=== PATIENT | female | born 1970 ===

== ENCOUNTER 2016-11-04 17:28 | Observation (INO) | payer OTHER ==
[2016-11-04 18:18] LABS: BASO % 0.3 % (0.0-2.0); EOS % 0.2 % (0.0-4.0); HEMATOCRIT 35.2 % (34.0-47.0); LYMPH # 1.4 K/uL (1.0-4.3); LYMPH % 11.8 % (20.0-40.0); MEAN CELL VOLUME 65.9 fL (81.0-99.0); MEAN CORPUSCULAR HGB CONC 31.9 g/dL (33.0-37.0); MEAN PLATELET VOLUME 8.7 fL (7.2-11.7); MONO # 0.7 K/uL (0.0-0.8); MONO % 6.4 % (0.0-10.0); RED CELL DISTRIBUTION WIDTH 15.2 % (11.5-14.5); WHITE BLOOD COUNT 11.7 K/uL (4.8-10.8)
[2016-11-04 18:35] LABS: RBC URINE < 1 /hpf (0-3); URINE BILIRUBIN NEGATIVE (NEGATIVE); URINE BLOOD NEGATIVE (NEGATIVE); URINE COLOR Straw (YELLOW); URINE GLUCOSE (UA) 3+ mg/dL (Normal); URINE KETONE TRACE mg/dL (NEGATIVE); URINE LEUKOCYTE ESTERASE NEG Leu/uL (Negative); URINE PROTEIN NEGATIVE (NEGATIVE); URINE UROBILINOGEN NORMAL mg/dL (0.2-1.0); WBC URINE 1 /hpf (0-5)
[2016-11-04 18:45] LABS: PARTIAL THROMBOPLASTIN TIME 27 SECONDS (21-34)
[2016-11-04 19:07] LABS: CHLORIDE 99 mmol/L (98-107)
[2016-11-04 19:08] LABS: POTASSIUM 3.7 mmol/L (3.6-5.2); SODIUM 140 mmol/L (132-148)
[2016-11-04 19:10] LABS: ALB/GLOB RATIO 1.2 (1.0-2.1); ALKALINE PHOSPHATASE 73 U/L (38-126); AST/SGOT 35 U/L (14-36); BILIRUBIN,TOTAL 0.6 mg/dL (0.2-1.3); CARBON DIOXIDE 22 mmol/L (22-30); GFR AFRICAN-AMERICAN > 60
[2016-11-04 19:11] LABS: ALT/SGPT 53 U/L (9-52); BLOOD UREA NITROGEN 15 mg/dL (7-17); CALCIUM 9.2 mg/dl (8.6-10.4); GLUCOSE,RANDOM 216 mg/dL (65-105)
--- NOTE | 2016-11-04 19:55 | C.PDOC ---
Time Seen by Provider: 11/04/16 17:43 Chief Complaint (Nursing): Shortness Of Breath History Per: Patient, Family, Paraoptometric History/Exam Limitations: language barrier Onset/Duration Of Symptoms: Days (about 2 weeks), Intermittent Episodes Current Symptoms Are (Timing): Still Present Current Respiratory Medications: Prednisone Severity: Moderate Associated Symptoms: Chest Pain Reports Recently: Seen In ED, Treated By A Physician (Prescribed Nitroglycerine patch by toucher up) Additional History Per: Prior Records Past Medical History Reviewed: Historical Data, Nursing Documentation, Vital Signs Vital Signs: Last Vital Signs Temp 97.9 F 11/04/16 19:25 Pulse 80 11/04/16 19:25 Resp 16 11/04/16 19:25 BP 124/76 11/04/16 19:25 Pulse Ox 99 11/04/16 19:56 - Medical History PMH: Anemia, Hyperlipidemia Surgical History: No Surg Hx Family History: States: Unknown Family Hx - Social History Hx Tobacco Use: No Hx Alcohol Use: No Hx Substance Use: No - Immunization History Hx Tetanus Toxoid Vaccination: No Hx Influenza Vaccination: No Review Of Systems Except As Marked, All Systems Reviewed And Found Negative. Constitutional: Negative for: Fever, Weakness Cardiovascular: Positive for: Chest Pain Respiratory: Positive for: Shortness of Breath, SOB with Excertion. Negative for: Cough, Hemoptysis Gastrointestinal: Negative for: Vomiting Genitourinary: Negative for: Dysuria Musculoskeletal: Positive for: Back Pain. Negative for: Neck Pain Skin: Negative for: Rash Neurological: Negative for: Weakness, Numbness, Seizures, Altered Mental Status Physical Exam - Physical Exam Appears: Non-toxic, No Acute Distress Skin: Normal Color, Warm, Dry, No Rash Head: Atraumatic, Normacephalic Eye(s): bilateral: Normal Inspection, PERRL, EOMI Neck: Normal ROM, Supple Chest: Symmetrical, No Deformity, Tenderness, No Ecchymosis, No Subcutaneous Emphysema Cardiovascular: Rhythm Regular Respiratory: Normal Breath Sounds, No Accessory Muscle Use Gastrointestinal/Abdominal: Soft, No Guarding, No Rebound Back: No CVA Tenderness Extremity: Normal ROM, No Pedal Edema Neurological/Psych: Oriented x3, Normal Motor, Normal Sensation ED Course And Treatment - Laboratory Results Result Diagrams: 11/04/16 18:08 11/04/16 18:08 Lab Interpretation: No Acute Changes Urine POC: Negative ECG: Interpreted By Me, Viewed By Me ECG Rhythm: Sinus Rhythm ECG Interpretation: No Acute Changes Rate From EC O2 Sat by Pulse Oximetry: 99 Pulse Ox Interpretation: Normal - Radiology CXR: Interpreted by Me, Viewed By Me CXR Interpretation: Yes: No Acute Disease, Heart Size (WNL), Mediastinum (WNL) Progress - Interventions Interventions:: Observation, Oxygen - Medications Administered Oral: Aspirin (325mg taken prior to arrival) - Data Reviewed Data Reviewed: Lab, Diagnostic imaging, EKG, Old records - Patient Status Patient status: Partially improved - Continuity of Care Discussed patient case with:: Patient, Family-HIPPA compliant, ED Nurse, On- call PMD-pt unassigned Disposition Discussed With : Ros Corona Comment: He accepted pt on his service and gave admitting orders to the nurse. Doctor Will See Patient In The: Hospital Counseled Patient/Family Regarding: Studies Performed, Diagnosis - Disposition Disposition: HOSPITALIZED Disposition Time: 20:07 Condition: FAIR - Clinical Impression Clinical Impression: Chest pain, Shortness of breath
--- NOTE | 2016-11-04 22:43 | CP.PCM.HP ---
History of Present Illness - History of Present Illness History of Present Illness: 46 years old female patient with past medical history of anemia, hyperlipidemia presented to the emergency department with complaint of intermittent episodes of shortness of breath, moderate chest pain over both right and left side. Patient reports having cervical spondylitis and had prior episodes of similar pain. Patient reports that she recently showed up in ED for the chest pain and prescribed nitroglycerin patch. No fever, nausea, vomiting No weakness, numbness, seizures No any abdominal or urinary symptoms Present on Admission - Present on Admission Any Indicators Present on Admission: No Past Patient History - Past Social History Smoking Status: Never Smoked - HEMATOLOGICAL/ONCOLOGICAL Hx Anemia: Yes - MUSCULOSKELETAL/RHEUMATOLOGICAL Other/Comment: vertebral spondylosis - PSYCHIATRIC Hx Substance Use: No - SURGICAL HISTORY Hx Surgeries: No - ANESTHESIA Hx Anesthesia: No Hx Anesthesia Reactions: No Meds Home Medications: Home Medication List Medication Instructions Recorded Confirmed Type Aspirin [Ecotrin] 81 mg PO DAILY #30 tablet. 11/05/16 Rx Losartan [Cozaar] 12.5 mg PO DAILY #30 tab 11/05/16 Rx Simvastatin [Zocor] 20 mg PO DAILY #30 tablet 11/05/16 Rx Allergies/Adverse Reactions: Allergies Allergy/AdvReac Type Severity Reaction Status Date / Time No Known Allergies Allergy Unverified 11/04/16 17:33 Physical Exam - Constitutional Appears: Well - Head Exam Head Exam: ATRAUMATIC - Eye Exam Eye Exam: EOMI, Normal appearance, PERRL - ENT Exam ENT Exam: Mucous Membranes Moist, Normal Exam - Neck Exam Neck exam: Positive for: Normal Inspection - Respiratory Exam Respiratory Exam: Decreased Breath Sounds - Cardiovascular Exam Cardiovascular Exam: REGULAR RHYTHM - GI/Abdominal Exam GI & Abdominal Exam: Diminished Bowel Sounds - Rectal Exam Rectal Exam: Deferred Results - Vital Signs Recent Vital Signs: Last Vital Signs Temp 98.0 F 11/04/16 22:28 Pulse 85 11/04/16 22:28 Resp 16 11/04/16 22:28 BP 141/68 11/04/16 21:34 Pulse Ox 100 11/04/16 22:28 - Labs Result Diagrams: 11/04/16 18:08 11/04/16 18:08 Labs: Laboratory Results - last 24 hr 11/04/16 21:32 Hemoglobin A1c 6.7 H Assessment & Plan (1) Chest pain Status: Acute (2) Shortness of breath Status: Acute - Assessment and Plan (Free Text) Plan: Meds and labs reviewed EKG notedNSR Chest x-ray within normal limit Cardio consult [place] ruled out Pain meds Blood pressure control Zocor Aspirin Lasix Labs next a.m.
[2016-11-05] MEDS: Albuterol-Ipratrop 3 mg / 0.5 (3 ml) UD INH SCH ×3 (01:14→14:10)
[2016-11-05 08:20] VITALS: O2SAT 100
--- NOTE | 2016-11-05 08:37 | RAD ---
HISTORY: COMPARISON: No prior. TECHNIQUE: Portable chest AP FINDINGS: LINES AND TUBES: None. LUNG AND PLEURA: The lungs are well inflated and clear. There are no pleural effusions or pneumothorax. HEART AND MEDIASTINUM: The heart is not enlarged. The hilar and mediastinal contours are within normal limits. SKELETAL STRUCTURES: The bony structures are within normal limits for the patient's age. VISUALIZED UPPER ABDOMEN: Normal. OTHER FINDINGS: None. IMPRESSION: No active pulmonary disease.
[2016-11-05] MEDS ORDERED: Pantoprazole 40 mg EC Tab PO SCH (10:00)
[2016-11-05] MEDS ORDERED: Enoxaparin 40 mg Syringe SC SCH (10:00)
--- NOTE | 2016-11-05 10:39 | CP.PCM.CON ---
History of Present Illness - History of Present Illness History of Present Illness: 46 y/o woman who is having a repeat episode of chest pain across both right and left side triggered by pain in the back of the neck. Patient reports having been told that she has cervical spondylitis and has had prior episodes of same. She denies any pleuritc chest pain or angina. There is no PND/orthopnea or LE edema. No fevers, chills or URI sx's. Overall active with ADLs. PMHX: anemia low MCV SURGICAL HX: CARDIAC HX: No DC or CVA ROS: all 12 systems neg except HPI SOCIAL: No Tobacco, ETOH or drugs Review of Systems - Review of Systems All systems: reviewed and no additional remarkable complaints except Past Patient History - Past Medical History & Family History Past Medical History?: No - Past Social History Smoking Status: Never Smoked - CARDIAC Hx Cardiac Disorders: No - PULMONARY Hx Respiratory Disorders: No - NEUROLOGICAL Hx Neurological Disorder: No - HEENT Hx HEENT Problems: No - RENAL Hx Kidney Stones: Yes - ENDOCRINE/METABOLIC Hx Endocrine Disorders: No - HEMATOLOGICAL/ONCOLOGICAL Hx Anemia: Yes - INTEGUMENTARY Hx Dermatological Problems: No - MUSCULOSKELETAL/RHEUMATOLOGICAL Hx Back Pain: Yes Hx Falls: No Hx Herniated Disk: Yes Other/Comment: vertebral spondylosis - GASTROINTESTINAL Hx Gastrointestinal Disorders: No - GENITOURINARY/GYNECOLOGICAL Hx Genitourinary Disorders: No - PSYCHIATRIC Hx Psychophysiologic Disorder: No Hx Substance Use: No - SURGICAL HISTORY Hx Surgeries: No - ANESTHESIA Hx Anesthesia: No Hx Anesthesia Reactions: No Meds Allergies/Adverse Reactions: Allergies Allergy/AdvReac Type Severity Reaction Status Date / Time No Known Allergies Allergy Unverified 11/04/16 17:33 - Medications Medications: Current Medications Albuterol/Ipratropium (Duoneb 3 Mg/0.5 Mg (3 Ml) Ud) 3 ml INH RQ6 [facility] Last Admin: 11/05/16 07:58 Dose: 3 ml Aspirin (Aspirin) 325 mg PO DAILY [facility] Last Admin: 11/05/16 09:07 Dose: 325 mg Enoxaparin Sodium (Lovenox) 40 mg SC DAILY [facility] Last Admin: 11/05/16 09:07 Dose: 40 mg Furosemide (Lasix) 40 mg IVP DAILY [facility] Last Admin: 11/05/16 09:07 Dose: 40 mg Pantoprazole Sodium (Protonix Ec Tab) 40 mg PO DAILY [facility] Last Admin: 11/05/16 09:07 Dose: 40 mg Ticagrelor (Brilinta) 90 mg PO BID [facility] Last Admin: 11/05/16 09:38 Dose: 90 mg Physical Exam - Constitutional Appears: No Acute Distress - Head Exam Head Exam: ATRAUMATIC, NORMAL INSPECTION, NORMOCEPHALIC - Eye Exam Eye Exam: EOMI, Normal appearance, PERRL - ENT Exam ENT Exam: Mucous Membranes Moist, Normal Oropharynx - Neck Exam Neck exam: Positive for: Normal Inspection. Negative for: Full Rom, Tenderness , Thyromegaly - Respiratory Exam Respiratory Exam: Clear to Auscultation Bilateral, NORMAL BREATHING PATTERN. absent: Rhonchi, Wheezes - Cardiovascular Exam Cardiovascular Exam: REGULAR RHYTHM, +S1, +S2. absent: Gallop, Systolic Murmur - GI/Abdominal Exam GI & Abdominal Exam: Normal Bowel Sounds, Soft. absent: Tenderness - Extremities Exam Extremities exam: Positive for: normal inspection. Negative for: calf tenderness, pedal edema - Neurological Exam Neurological exam: Alert, Oriented x3 - Psychiatric Exam Psychiatric exam: Normal Affect, Normal Mood - Skin Skin Exam: Normal Color, Warm Results - Vital Signs Recent Vital Signs: Last Vital Signs Temp 97.9 F 11/05/16 08:35 Pulse 67 11/05/16 08:35 Resp 18 11/05/16 08:35 BP 161/81 H 11/05/16 09:07 Pulse Ox 100 11/05/16 08:35 - Labs Result Diagrams: 11/04/16 18:08 11/04/16 18:08 Labs: Laboratory Results - last 24 hr 11/04/16 11/05/16 11/05/16 21:32 07:05 08:52 Hemoglobin A1c 6.7 H Total Creatine Kinase 48 50 CK-MB (Mass) 0.42 0.46 Troponin I, Quant < 0.0120 < 0.0120 - EKG Data EKG Interpreted by: Myself Assessment & Plan - Assessment and Plan (Free Text) Assessment: CP and SOB; * EKG: NSR, No ischemic changes * CXRAY: WNL no infiltrates or effusion * LABS: normal H/H low MCV * BDLN DM: A1c 6.7 * DC ruled out * Clinically no CHF/PAD or murmurs > Consider referred pain from cervical DJD as cause > Low suspicion for any cardiac cause > Antiinlammatory and f/u for cervical DJD as outpatient > Suggest ARB for BP control, Zocor 20 HS and ASA 81 > F/U PMD for DM management
[2016-11-05 16:04] VITALS: BP 147/83; PULSE 72; RESP 20; TEMP 97.5
--- NOTE | 2016-11-05 17:09 | CP.PCM.PN ---
Subjective - Date & Time of Evaluation Date of Evaluation: 11/05/16 Time of Evaluation: 17:03 - Subjective Subjective: PGY2 progress note for Dr. Corona Pt is seen and examined at bedside. No acute events overnight. Patient is c/o of right and left sided chest pain radiating to neck. pain is reproducible to palpation. Patient denies having any N/V/D/C, SOB, F/C. 12 point ROS are negative except for the above mentioned. Objective - Vital Signs/Intake and Output Vital Signs (last 24 hours): Temp Pulse Resp BP Pulse Ox 97.5 F L 72 20 147/83 100 11/05/16 15:02 11/05/16 15:02 11/05/16 15:02 11/05/16 15:02 11/05/16 15:02 Intake and Output: 11/05/16 11/05/16 06:59 18:59 Intake Total 420 Balance 420 - Medications Medications: Current Medications Albuterol/Ipratropium (Duoneb 3 Mg/0.5 Mg (3 Ml) Ud) 3 ml INH RQ6 [facility] Last Admin: 11/05/16 14:10 Dose: 3 ml Aspirin (Aspirin) 325 mg PO DAILY [facility] Last Admin: 11/05/16 09:07 Dose: 325 mg Enoxaparin Sodium (Lovenox) 40 mg SC DAILY [facility] Last Admin: 11/05/16 09:07 Dose: 40 mg Furosemide (Lasix) 40 mg IVP DAILY [facility] Last Admin: 11/05/16 09:07 Dose: 40 mg Pantoprazole Sodium (Protonix Ec Tab) 40 mg PO DAILY [facility] Last Admin: 11/05/16 09:07 Dose: 40 mg Pneumococcal Polyvalent Vaccine (Pneumovax 23 Vaccine) 0.5 ml IM .ONCE ONE Stop: 11/06/16 10:01 Ticagrelor (Brilinta) 90 mg PO BID [facility] Last Admin: 11/05/16 09:38 Dose: 90 mg - Labs Labs: PT 11.4 SECONDS (9.7-12.2) 11/04/16 18:08 INR 1.0 11/04/16 18:08 APTT 27 SECONDS (21-34) 11/04/16 18:08 - Constitutional Appears: Non-toxic, No Acute Distress - Head Exam Head Exam: ATRAUMATIC - Eye Exam Eye Exam: EOMI - ENT Exam ENT Exam: Mucous Membranes Moist - Respiratory Exam Respiratory Exam: Clear to Ausculation Bilateral. absent: Accessory Muscle Use , Rales, Rhonchi, Wheezes, Respiratory Distress - Cardiovascular Exam Cardiovascular Exam: REGULAR RHYTHM, +S1, +S2. absent: Gallop, Rubs, Murmur - GI/Abdominal Exam GI & Abdominal Exam: Soft, Normal Bowel Sounds. absent: Firm, Guarding, Rigid, Tenderness, Organomegaly - Extremities Exam Extremities Exam: absent: Pedal Edema, Tenderness - Neurological Exam Neurological Exam: Alert, Awake, Oriented x3 - Psychiatric Exam Psychiatric exam: Normal Affect, Normal Mood - Skin Skin Exam: Dry, Intact, Normal Color, Warm Assessment and Plan - Assessment and Plan (Free Text) Assessment: 46 year old female with past medical history of migraines and cervical disc herniations is admitted for CP r/o ACS Chest pain R/O ACS - Cardiology, Dr. Abraham is consulted - Troponins x3 are negative and EKG showed no St changes, NSR - Pain is reproducibleto palpation - Per cardiology, patient is to follow up out patient with cardiology for further testing. - Aspirin, Brilinta Neck pain - toradol prn - Recommend taking NSAID prn for pain Prophylaxis - Lovenox - Protonix Orders and management per Dr. Corona Patient is stable for discharge per Dr. Corona Patient is to follow up with PMD upon discharge. 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 Patient is discharged on the following medications: Aspirin 81 mg po qd, Cozaar 12.5 mg po qd, Zocor 20 mg po qd Patient is to return to Ed if symptoms worsen.
--- NOTE | 2016-11-05 17:44 | CP.PCM.PN ---
Subjective - Date & Time of Evaluation Date of Evaluation: 11/05/16 Time of Evaluation: 14:20 - Subjective Subjective: clinically same Objective - Vital Signs/Intake and Output Vital Signs (last 24 hours): Temp Pulse Resp BP Pulse Ox 97.5 F L 72 20 147/83 100 11/05/16 15:02 11/05/16 15:02 11/05/16 15:02 11/05/16 15:02 11/05/16 15:02 Intake and Output: 11/05/16 11/05/16 06:59 18:59 Intake Total 420 Balance 420 - Medications Medications: Current Medications Albuterol/Ipratropium (Duoneb 3 Mg/0.5 Mg (3 Ml) Ud) 3 ml INH RQ6 [facility] Last Admin: 11/05/16 14:10 Dose: 3 ml Aspirin (Aspirin) 325 mg PO DAILY [facility] Last Admin: 11/05/16 09:07 Dose: 325 mg Enoxaparin Sodium (Lovenox) 40 mg SC DAILY [facility] Last Admin: 11/05/16 09:07 Dose: 40 mg Furosemide (Lasix) 40 mg IVP DAILY [facility] Last Admin: 11/05/16 09:07 Dose: 40 mg Pantoprazole Sodium (Protonix Ec Tab) 40 mg PO DAILY [facility] Last Admin: 11/05/16 09:07 Dose: 40 mg Pneumococcal Polyvalent Vaccine (Pneumovax 23 Vaccine) 0.5 ml IM .ONCE ONE Stop: 11/06/16 10:01 Ticagrelor (Brilinta) 90 mg PO BID [facility] Last Admin: 11/05/16 09:38 Dose: 90 mg - Labs Labs: PT 11.4 SECONDS (9.7-12.2) 11/04/16 18:08 INR 1.0 11/04/16 18:08 APTT 27 SECONDS (21-34) 11/04/16 18:08 - Constitutional Appears: Well - Head Exam Head Exam: ATRAUMATIC, NORMAL INSPECTION, NORMOCEPHALIC - Eye Exam Eye Exam: EOMI, Normal appearance, PERRL Pupil Exam: NORMAL ACCOMODATION, PERRL - ENT Exam ENT Exam: Mucous Membranes Moist, Normal Exam - Neck Exam Neck Exam: Full ROM, Normal Inspection. absent: Lymphadenopathy - Respiratory Exam Respiratory Exam: Decreased Breath Sounds - Cardiovascular Exam Cardiovascular Exam: REGULAR RHYTHM, +S1, +S2 - GI/Abdominal Exam GI & Abdominal Exam: Soft, Diminished Bowel Sounds - Rectal Exam Rectal Exam: Deferred Assessment and Plan (1) Chest pain Status: Acute (2) Shortness of breath Status: Acute - Assessment and Plan (Free Text) Plan: Patient clinically better Pain improved Continue aspirin Plan discharge Follow-up with cardio upon discharge Continue as advised at home Return to ED if symptom recurs
[2016-11-06] MEDS ORDERED: Pneumococcal 23-Valent Vaccine IM ONE (10:00)
--- NOTE | 2016-11-09 10:11 | CARD ---
APPROVED REPORT EKG Measurement Heart [id number] <Conclusion> Normal sinus rhythm Normal ECG
--- NOTE | 2016-11-23 08:25 | CARD ---
APPROVED REPORT EKG Measurement Heart [id number] <Conclusion> Normal sinus rhythm Possible Inferior infarct, age undetermined Abnormal ECG
== END 2016-11-05 18:45 | disposition home or self-care (01) ==
LOC: C.ER 17:28 → C.9E 20:08 → C.6T 22:30
PROVIDERS: ADMIT Internal Medicine Nephrology; ATTEND Internal Medicine Nephrology
DX: R07.9 Chest pain, unspecified (principal); R06.02 Shortness of breath
CPT/HCPCS: 36415; 71010; 80053; 80324; 80345; 80346; 80349; 80353; 80358; 80361; 81001; 83036; 83690; 83880; 83992; 84484; 84703; 85025; 85378; 85610; 85730; 94640; 99285; G0378; J1650; J1885; J1940